=== PATIENT | male | born 1950 | race Two or more races ===

== ENCOUNTER 2018-01-31 18:14 | Emergency (ER) | payer MEDICARE, OTHER ==
[~2018-01-31] VITALS: Ht 180.3 cm; Wt 108.9 kg
[~2018-01-31 18:14] MED LIST: NORCO 10MG-325MG1 EA PO
[2018-01-31] MEDS ORDERED: LIDOCAINE 5% PATCH TP NR (19:30)
[2018-01-31 20:30] LABS: CLARITY,URINE CLEAR (CLEAR); COLOR,URINE YELLOW (YELLOW); LEUKOCYTE ESTERASE ,URINE NEGATIVE (NEGATIVE)
[2018-01-31 20:31] LABS: BILIRUBIN,URINE NEGATIVE (NEGATIVE); KETONES,URINE NEGATIVE (NEGATIVE); NITRITE,URINE NEGATIVE (NEGATIVE); PROTEIN,URINE DIPSTICK NEGATIVE (NEGATIVE); URINE UROBILINOGEN 0.2 mg/dL (0.2 - 1)
--- NOTE | 2018-01-31 20:33 | Diagnostic Imaging Report ---
History: Severe back pain, history of discectomy. Comparison studies: Report of MRI lumbar spine from 06/05/2011, images are not available for comparison at the time of interpretation. Technique: Axial images were obtained through the lumbar spine from L1-S1. Coronal and sagittal images reconstructed from the axial data. Dose modulation, iterative reconstruction, and/or weight based adjustment of the mA/kV was utilized to reduce the radiation dose to as low as reasonably achievable. Intravenous contrast: None Findings: The usual 5 non-rib bearing lumbar vertebral bodies are present. Alignment: Loss of normal lumbar lordosis may be positional or due to muscle spasm. Mild dextrocurvature of the lumbar spine centered at L2-L3. Soft tissues: No abnormalities. Paraspinal muscles: Fatty atrophy of left posterior paraspinal muscle at S1. Sacroiliac joints: Moderate right and mild left degenerative changes in the sacroiliac joint, with decreased joint space, subchondral sclerosis and osteophyte formation. Vertebrae: Nonspecific 1.1 cm lytic lesion in the posterior aspect of L5 vertebral body. Degenerative changes: L1-L2: Mild degenerative disc disease with endplate sclerosis, anterior vertebral osteophyte and minimal vacuum phenomena. Disc bulge without significant canal stenosis. Mild bilateral facet arthrosis. Mild right foraminal stenosis. L2-L3: Mild to moderate degenerative disc disease with decreased intervertebral disc space, endplate sclerosis, anterior vertebral osteophyte and vacuum phenomena. Disc bulge asymmetric to right and facet arthrosis effaces thecal sac without significant canal stenosis. Moderate right and mild left foraminal stenosis. L3-L4: Mild degenerative disc disease with endplate sclerosis, anterior vertebral osteophyte and vacuum phenomena. Disc bulge and bilateral facet arthrosis without significant canal stenosis. Moderate right and severe left foraminal stenosis. L4-L5: Status post left laminotomy. Mild degenerative disc disease with endplate sclerosis and trace vacuum phenomena. Disc bulge and facet arthrosis without significant canal stenosis. Mild right and moderate left facet arthrosis. Bilateral severe (left worse than right) foraminal stenosis with possible impingement of left L4 nerve root. L5-S1: Disc bulge without canal stenosis. Moderate right and mild left facet arthrosis. No foraminal stenosis. IMPRESSION: 1. Multilevel lumbar spondylosis, status post left laminotomy at L4-L5. 2. No significant canal stenosis. 3. Multilevel foraminal stenosis, particularly mild right at L1-L2, moderate right and mild left at L2-L3, moderate right and severe left at L3-L4 and bilateral severe at L4-L5 with possible impingement of left L4 nerve root. 4. Multilevel degenerative disc disease and facet arthrosis as detailed above. 5. Suboptimal evaluation as comparison is done only with report of prior MRI lumbar spine from 06/05/2011, however based on the prior report there is interval progression of the lumbar spondylosis. Consider follow-up with MRI of the lumbar spine with and without contrast. Signed by: Dr. Bailey Day M.D. on 01/31/2018 8:30 PM
[2018-01-31 20:42] LABS: RBC,URINE 0-5 /HPF (0-5); WBC,URINE (MAN) 0-5 /HPF (0-5)
[2018-01-31] MEDS ORDERED: ULTRAM50 MG PO (21:31)
== END 2018-01-31 21:52 | disposition home or self-care (01) ==
LOC: ER 18:14
DX: M54.5 Low back pain (principal); M51.37 Other intervertebral disc degeneration, lumbosacral region
CPT/HCPCS: 72131; 81001; 99284

== ENCOUNTER 2018-06-20 17:21 | Emergency (ER) | payer OTHER ==
[~2018-06-20] VITALS: Ht 180.3 cm; Wt 108.9 kg
[~2018-06-20 17:21] MED LIST changes: +ULTRAM50 MG PO
--- OUTSIDE RECORDS SUMMARY | 2018-06-20 17:24 | XMS REPORT ---
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 Allergies, Adverse Reactions, Alerts This patient has no known allergies or adverse reactions. Medications This patient has no known medications. Results Test Description Test Time Test Comments Text Results Atomic Results Result Comments CT LUMBAR SPINE WO 2018-01-31 20:11:00 [place] [id number] [place] [id number] Patient Name: TRACEY DERAS MR #: [id number] : 1950 Age/Sex: 67/M Req #: [id number] [facility] Physician: Ordered by: JYOTI ANGLIN MD Report #: [id number] Location: ER Room/Bed: Procedure: [id number] CT/CT LUMBAR SPINE WO Exam Date: 01/31/18 Exam Time: 1958 REPORT STATUS: Signed History: Severe back pain, history of discectomy. Comparison studies: Report of MRI lumbar spine from 06/05/2011, images are not available for comparison at the time of interpretation. Technique: Axial images were obtained through the lumbar spine from L1-S1. Coronal and sagittal images reconstructed from the axial data. Dose modulation, iterative reconstruction, and/or weight based adjustment of the mA/kV was utilized to reduce the radiation dose to as low as reasonably achievable. Intravenous contrast: None Findings: The usual 5 non-rib bearing lumbar vertebral bodies are present. Alignment: Loss of normal lumbar lordosis may be positional or due to muscle spasm. Mild dextrocurvature of the lumbar spine centered at L2-L3. Soft tissues: No abnormalities. Paraspinal muscles: Fatty atrophy of left posterior paraspinal muscle at S1. Sacroiliac joints: Moderate right and mild left degenerative changes in the sacroiliac joint, with decreased joint space, subchondral sclerosis and osteophyte formation. Vertebrae: Nonspecific 1.1 cm lytic lesion in the posterior aspect of L5 vertebral body. Degenerative changes: L1-L2: Mild degenerative disc disease with endplate sclerosis, anterior vertebral osteophyte and minimal vacuum phenomena. Disc bulge without significant canal stenosis. Mild bilateral facet arthrosis. Mild right foraminal stenosis. L2-L3: Mild to moderate degenerative disc disease with decreased intervertebral disc space, endplate sclerosis, anterior vertebral osteophyte and vacuum phenomena. Disc bulge asymmetric to right and facet arthrosis effaces thecal sac without significant canal stenosis. Moderate right and mild left foraminal stenosis. L3-L4: Mild degenerative disc disease with endplate sclerosis, anterior vertebral osteophyte and vacuum phenomena. Disc bulge and bilateral facet arthrosis without significant canal stenosis. Moderate right and severe left foraminal stenosis. L4-L5: Status post left laminotomy. Mild degenerative disc disease with endplate sclerosis and trace vacuum phenomena. Disc bulge and facet arthrosis without significant canal stenosis. Mild right and moderate left facet arthrosis. Bilateral severe (left worse than right) foraminal stenosis with possible impingement of left L4 nerve root. L5- S1: Disc bulge without canal stenosis. Moderate right and mild left facet arthrosis. No foraminal stenosis. IMPRESSION: 1. Multilevel lumbar spondylosis, status post left laminotomy at L4-L5. 2. No significant canal stenosis. 3. Multilevel foraminal stenosis, particularly mild right at L1-L2, moderate right and mild left at L2-L3, moderate right and severe left at L3-L4 and bilateral severe at L4-L5 with possible impingement of left L4 nerve root. 4. Multilevel degenerative disc disease and facet arthrosis as detailed above. 5. Suboptimal evaluation as comparison is done only with report of prior MRI lumbar spine from 06/05/2011, however based on the prior report there is interval progression of the lumbar spondylosis. Consider follow-up with MRI of the lumbar spine with and without contrast. Signed by: Dr. Bailey Day M.D. on 01/31/2018 8:30 PM Dictated By: BAILEY DAY MD 29 Transcribed By: BEE on 01/31/182029 COPY TO: JYOTI ANGLIN MD
== END 2018-06-20 20:23 | disposition home or self-care (01) ==
LOC: ER 17:21
DX: J31.2 Chronic pharyngitis (principal); M54.9 Dorsalgia, unspecified; G89.29 Other chronic pain
CPT/HCPCS: 99282

== ENCOUNTER 2021-08-24 07:45 | Emergency (ER) | payer MEDICARE ==
[~2021-08-24] VITALS: Ht 180.3 cm; Wt 112.5 kg
[2021-08-24] MEDS ORDERED: SODIUM CHLORIDE 0.9% 1000ML 1,000 ML IV STA (08:13)
[2021-08-24] MEDS ORDERED: KETOROLAC TROMETHAMINE 30 MG/ML VIAL IV STA (08:13)
[2021-08-24] MEDS ORDERED: HYDROCODONE/APAP 7.5MG-325MG 1 EA TAB PO ONE (08:30)
[2021-08-24 08:34] LABS: BASOPHILS % 0.4 % (0.0-1.0); EOSINOPHILS # (AUTO) 0.1 (0.0-0.4); EOSINOPHILS % 0.7 % (0.0-6.0); HEMATOCRIT 43.5 % (38.2-49.6); HEMOGLOBIN 15.1 g/dL (14.0-18.0); LYMPHOCYTES % 26.8 % (18.0-39.1); MEAN CORPUSCULAR HEMOGLOBIN 29.4 pg (28-32); MEAN CORPUSCULAR HGB CONC 34.7 g/dL (31-35); MEAN CORPUSCULAR VOLUME 84.8 fL (81-99); MONOCYTES # (AUTO) 0.6 (0.2-0.8); MONOCYTES % 7.6 % (4.4-11.3); NEUTROPHILS # (AUTO) 4.7 (2.1-6.9); NEUTROPHILS % 64.1 % (38.7-80.0); PLATELET COUNT 220 x10e3/uL (140-360); RED BLOOD COUNT 5.13 x10e6/uL (4.3-5.7); RED CELL DISTRIBUTION WIDTH 12.4 % (11.7-14.4)
[2021-08-24 08:53] LABS: ALANINE AMINOTRANSFERASE 16 IU/L (0-55); ALKALINE PHOSPHATASE 90 IU/L (40-150); ANION GAP 12.7 mmol/L (8-16); BLOOD UREA NITROGEN 17 mg/dL (7-26); BUN/CREATININE RATIO 15 (6-25); CALCIUM 9.3 mg/dL (8.4-10.2); CARBON DIOXIDE 24 mmol/L (22-29); CHLORIDE 107 mmol/L (98-107); CREATINE KINASE 75 IU/L (30-200); CREATININE, SERUM 1.13 mg/dL (0.72-1.25); EST GLOMERULAR FILTRATION RATE 64 ML/MIN (60-); GLUCOSE 163 mg/dL (74-118); POTASSIUM 3.7 mmol/L (3.5-5.1); SODIUM 140 mmol/L (136-145)
[2021-08-24 08:53] LABS: CLARITY,URINE SL CLOUDY (CLEAR); COLOR,URINE YELLOW (YELLOW); LEUKOCYTE ESTERASE ,URINE NEGATIVE (NEGATIVE); NITRITE,URINE NEGATIVE (NEGATIVE); PROTEIN,URINE DIPSTICK NEGATIVE (NEGATIVE)
[2021-08-24 08:54] LABS: BACTERIA,URINE FEW /HPF; KETONES,URINE NEGATIVE (NEGATIVE); RBC,URINE 0-5 /HPF (0-5); URINE UROBILINOGEN 0.2 mg/dL (0.2 - 1); WBC,URINE (MAN) 0-5 /HPF (0-5)
[2021-08-24 08:55] LABS: EPITHELIAL CELLS,URINE FEW /LPF; MUCUS,URINE MODERATE (RARE)
[2021-08-24] MEDS ORDERED: HYDROCODON-ACE1 EAC9 PO (10:54)
[2021-08-24] MEDS ORDERED: PROTONIX40 MG PO (10:54)
[2021-08-24 11:07] VITALS: BP 109/78
== END 2021-08-24 11:05 | disposition home or self-care (01) ==
LOC: ER 08:05
DX: M54.50 Low back pain, unspecified (principal); G89.29 Other chronic pain; I10 Essential (primary) hypertension; E03.9 Hypothyroidism, unspecified
CPT/HCPCS: 36415; 71045; 74176; 80053; 81001; 82550; 82553; 84484; 85025; 93005; 99284; J1885; J7030

== ENCOUNTER 2021-12-19 07:46 | Emergency (ER) | payer MEDICARE, OTHER ==
[~2021-12-19] VITALS: Ht 180.3 cm; Wt 112.5 kg
[~2021-12-19 07:46] MED LIST changes: +HYDROCODON-ACE1 EAC9 PO; +PROTONIX40 MG PO
[2021-12-19 09:25] LABS: BASOPHILS % 0.3 % (0.0-1.0); EOSINOPHILS # (AUTO) 0.1 (0.0-0.4); EOSINOPHILS % 1.4 % (0.0-6.0); HEMATOCRIT 43.5 % (38.2-49.6); HEMOGLOBIN 14.7 g/dL (14.0-18.0); LYMPHOCYTES # (AUTO) 2.8 (1.0-3.2); LYMPHOCYTES % 41.8 % (18.0-39.1); MEAN CORPUSCULAR HEMOGLOBIN 29.3 pg (28-32); MEAN CORPUSCULAR HGB CONC 33.8 g/dL (31-35); MEAN CORPUSCULAR VOLUME 86.8 fL (81-99); MONOCYTES # (AUTO) 0.5 (0.2-0.8); MONOCYTES % 7.7 % (4.4-11.3); NEUTROPHILS # (AUTO) 3.2 (2.1-6.9); NEUTROPHILS % 48.5 % (38.7-80.0); PLATELET COUNT 184 x10e3/uL (140-360); RED BLOOD COUNT 5.01 x10e6/uL (4.3-5.7); RED CELL DISTRIBUTION WIDTH 12.4 % (11.7-14.4)
[2021-12-19 09:38] LABS: INR 0.91; PROTHROMBIN TIME 13.1 seconds (11.9-14.5)
[2021-12-19 09:39] LABS: PARTIAL THROMBOPLASTIN TIME 28.7 seconds (23.8-35.5)
[2021-12-19 09:51] LABS: ALBUMIN/GLOBULIN RATIO 0.9 (0.8-2.0); ANION GAP 13.2 mmol/L (8-16); CREATININE, SERUM 0.85 mg/dL (0.72-1.25); POTASSIUM 4.2 mmol/L (3.5-5.1)
[2021-12-19] MEDS ORDERED: IOPAMIDOL 370 MG/ML 100 ML INFUS..BTL INJ ONE (11:25)
[2021-12-19] MEDS ORDERED: HYDROCODONE/APAP 10MG-325MG TAB PO ONE (12:30)
== END 2021-12-19 13:55 | disposition home or self-care (01) ==
LOC: ER 08:00
DX: M54.50 Low back pain, unspecified (principal); S00.83XA Contusion of other part of head, initial encounter; M25.552 Pain in left hip; W20.8XXA Other cause of strike by thrown, projected or falling object, initial encounter; Y93.H2 Activity, gardening and landscaping; Y92.89 Other specified places as the place of occurrence of the external cause; I10 Essential (primary) hypertension; E03.9 Hypothyroidism, unspecified; M54.9 Dorsalgia, unspecified; G89.29 Other chronic pain
CPT/HCPCS: 36415; 70450; 71260; 72125; 74177; 80053; 85025; 85610; 85730; 99284; Q9967

== ENCOUNTER 2022-03-31 11:28 | Emergency (ER) | payer MEDICARE, OTHER ==
[~2022-03-31] VITALS: Ht 180.3 cm; Wt 112.5 kg
[2022-03-31 13:30] LABS: CLARITY,URINE CLEAR (CLEAR); COLOR,URINE YELLOW (YELLOW)
[2022-03-31 13:31] LABS: BACTERIA,URINE RARE /HPF; KETONES,URINE NEGATIVE (NEGATIVE); LEUKOCYTE ESTERASE ,URINE NEGATIVE (NEGATIVE); MUCUS,URINE FEW (RARE); NITRITE,URINE NEGATIVE (NEGATIVE); PROTEIN,URINE DIPSTICK NEGATIVE (NEGATIVE); RBC,URINE 0-5 /HPF (0-5); URINE UROBILINOGEN 1 mg/dL (0.2 - 1); WBC,URINE (MAN) 0-5 /HPF (0-5)
[2022-03-31] MEDS ORDERED: METHOCARBAMOL750 MG PO (13:35)
[2022-03-31 13:49] VITALS: BP 106/63
== END 2022-03-31 13:43 | disposition home or self-care (01) ==
LOC: ER 11:47
DX: M62.830 Muscle spasm of back (principal); X50.0XXA Overexertion from strenuous movement or load, initial encounter; Y92.89 Other specified places as the place of occurrence of the external cause; I10 Essential (primary) hypertension; E03.9 Hypothyroidism, unspecified; M54.9 Dorsalgia, unspecified; G89.29 Other chronic pain
CPT/HCPCS: 74176; 81001; 99284

== ENCOUNTER 2023-04-03 08:34 | Emergency (ER) | payer MEDICARE ==
[~2023-04-03] VITALS: Ht 180.3 cm; Wt 112.5 kg
[~2023-04-03 08:34] MED LIST changes: +METHOCARBAMOL750 MG PO
[2023-04-03 08:39] VITALS: O2SAT 98
[2023-04-03] MEDS ORDERED: ONDANSETRON HCL INJ 2MG/ML 2ML 2 MG/ML VIAL IV STA (08:49)
[2023-04-03] MEDS ORDERED: KETOROLAC TROMETHAMINE 30 MG/ML VIAL IV STA (08:49)
[2023-04-03] MEDS ORDERED: SODIUM CHLORIDE 0.9% 1000ML 1,000 ML IV STA (08:49)
[2023-04-03] MEDS ORDERED: HYDROCODONE/APAP 10MG-325MG TAB PO ONE (09:00)
[2023-04-03 09:04] LABS: BASOPHILS % 0.6 % (0.0-1.0); EOSINOPHILS # (AUTO) 0.1 (0.0-0.4); EOSINOPHILS % 0.9 % (0.0-6.0); HEMATOCRIT 41.1 % (38.2-49.6); HEMOGLOBIN 14.2 g/dL (14.0-18.0); LYMPHOCYTES # (AUTO) 3.6 (1.0-3.2); LYMPHOCYTES % 51.7 % (18.0-39.1); MEAN CORPUSCULAR HEMOGLOBIN 29.4 pg (28-32); MEAN CORPUSCULAR HGB CONC 34.5 g/dL (31-35); MEAN CORPUSCULAR VOLUME 85.1 fL (81-99); MONOCYTES # (AUTO) 0.5 (0.2-0.8); MONOCYTES % 7.7 % (4.4-11.3); NEUTROPHILS # (AUTO) 2.7 (2.1-6.9); NEUTROPHILS % 38.8 % (38.7-80.0); PLATELET COUNT 172 x10e3/uL (140-360); RED BLOOD COUNT 4.83 x10e6/uL (4.3-5.7); RED CELL DISTRIBUTION WIDTH 12.7 % (11.7-14.4); WHITE BLOOD COUNT 6.92 x10e3/uL (4.8-10.8)
[2023-04-03 09:15] LABS: INR 1.1; PROTHROMBIN TIME 14.4 seconds (11.9-14.5)
[2023-04-03 09:16] LABS: PARTIAL THROMBOPLASTIN TIME 30.7 seconds (23.8-35.5)
[2023-04-03 09:35] LABS: ALANINE AMINOTRANSFERASE 15 IU/L (0-55); ALBUMIN/GLOBULIN RATIO 1.1 (0.8-2.0); ALKALINE PHOSPHATASE 78 IU/L (40-150); ANION GAP 12.8 mmol/L (8-16); BLOOD UREA NITROGEN 16 mg/dL (7-26); BUN/CREATININE RATIO 18 (6-25); CALCIUM 8.9 mg/dL (8.4-10.2); CARBON DIOXIDE 23 mmol/L (22-29); CHLORIDE 109 mmol/L (98-107); CREATININE, SERUM 0.87 mg/dL (0.72-1.25); LIPASE 6 U/L (8-78); POTASSIUM 3.8 mmol/L (3.5-5.1); SODIUM 141 mmol/L (136-145)
[2023-04-03 09:45] LABS: CLARITY,URINE CLEAR (CLEAR); COLOR,URINE YELLOW (YELLOW); LEUKOCYTE ESTERASE ,URINE NEGATIVE (NEGATIVE)
[2023-04-03 09:46] LABS: BACTERIA,URINE FEW /HPF; EPITHELIAL CELLS,URINE FEW /LPF; KETONES,URINE NEGATIVE (NEGATIVE); NITRITE,URINE NEGATIVE (NEGATIVE); PROTEIN,URINE DIPSTICK NEGATIVE (NEGATIVE); URINE UROBILINOGEN 0.2 mg/dL (0.2 - 1); WBC,URINE (MAN) 0-5 /HPF (0-5)
[2023-04-03] MEDS ORDERED: IOPAMIDOL 370 MG/ML 100 ML INFUS..BTL INJ ONE (09:52)
[2023-04-03] MEDS ORDERED: DICYCLOMINE HCL20 MG PO (10:43)
== END 2023-04-03 11:28 | disposition home or self-care (01) ==
LOC: ER 08:39
DX: R10.32 Left lower quadrant pain (principal); K57.30 Diverticulosis of large intestine without perforation or abscess without bleeding; M25.552 Pain in left hip; I10 Essential (primary) hypertension; E03.9 Hypothyroidism, unspecified; M54.9 Dorsalgia, unspecified; G89.29 Other chronic pain
CPT/HCPCS: 36415; 71045; 74177; 80053; 81001; 83690; 83735; 84484; 85025; 85610; 85730; 87086; 93005; 99284; C9113; J1885; J2405; J7030; Q9967

== ENCOUNTER 2024-10-05 06:47 | Emergency (ER) | payer MEDICARE ==
[~2024-10-05] VITALS: Ht 180.3 cm; Wt 108.4 kg
[~2024-10-05 06:47] MED LIST changes: +DICYCLOMINE HCL20 MG PO; +PAXLOVID 300-11 EAC1 PO
[2024-10-05 07:06] VITALS: PULSE 74; RESP 16; TEMP 98.2; O2SAT 97
[2024-10-05 08:19] LABS: BILIRUBIN,URINE NEGATIVE (NEGATIVE); CLARITY,URINE CLEAR (CLEAR); COLOR,URINE YELLOW (YELLOW); GLUCOSE, URINE NEGATIVE (NEGATIVE); KETONES,URINE NEGATIVE (NEGATIVE); LEUKOCYTE ESTERASE ,URINE NEGATIVE (NEGATIVE); NITRITE,URINE NEGATIVE (NEGATIVE); PH,URINE 5.5 (5 - 7); PROTEIN,URINE DIPSTICK NEGATIVE (NEGATIVE); URINE UROBILINOGEN 0.2 mg/dL (0.2 - 1)
[2024-10-05 08:36] LABS: RBC,URINE 0-5 /HPF (0-5); WBC,URINE (MAN) 0-5 /HPF (0-5)
[2024-10-05 08:37] LABS: BACTERIA,URINE FEW /HPF; EPITHELIAL CELLS,URINE RARE /LPF
== END 2024-10-05 09:10 | disposition home or self-care (01) ==
LOC: ER 06:50
DX: R10.30 Lower abdominal pain, unspecified (principal); N40.0 Benign prostatic hyperplasia without lower urinary tract symptoms; I10 Essential (primary) hypertension; E03.9 Hypothyroidism, unspecified; M54.9 Dorsalgia, unspecified; G89.29 Other chronic pain
CPT/HCPCS: 81001; 87086; 99283

== ENCOUNTER 2025-02-17 19:55 | Emergency (ER) | payer MEDICARE ==
[~2025-02-17] VITALS: Ht 180.3 cm; Wt 105.2 kg
[~2025-02-17 19:55] MED LIST changes: +CEFDINIR300 MG PO
[2025-02-17 19:59] VITALS: TEMP 98.6
[2025-02-17] MEDS ORDERED: DILTIAZEM HCL 5 MG/ML 5 ML VIAL IV ONE (20:30)
[2025-02-17] MEDS ORDERED: METOPROLOL SUCCINATE 25 MG TAB XL PO ONE (20:30)
[2025-02-17 20:51] LABS: BASOPHILS % 0.3 % (0.0-1.0); EOSINOPHILS % 0.2 % (0.0-6.0); LYMPHOCYTES % 21.2 % (18.0-39.1); MONOCYTES % 8.6 % (4.4-11.3); NEUTROPHILS % 69.2 % (38.7-80.0); RED CELL DISTRIBUTION WIDTH 12.3 % (11.7-14.4)
[2025-02-17 21:15] LABS: EST GLOMERULAR FILTRATION RATE 53.0 ML/MIN (>=60)
[2025-02-17] MEDS ORDERED: LACTATED RINGER'S 1,000 ML ONE (22:04)
[2025-02-17] MEDS: LACTATED RINGER'S 1,000 ML INJ ONE (22:10)
[2025-02-17 22:14] VITALS: PULSE 90; RESP 17
[2025-02-17 22:50] VITALS: BP 110/74; PULSE 88; RESP 17; TEMP 97.8; O2SAT 98
== END 2025-02-17 23:06 | disposition home or self-care (01) ==
LOC: ER 20:22
DX: R42 Dizziness and giddiness (principal); I48.91 Unspecified atrial fibrillation; I10 Essential (primary) hypertension; E03.9 Hypothyroidism, unspecified; M54.9 Dorsalgia, unspecified; G89.29 Other chronic pain; R94.31 Abnormal electrocardiogram [ECG] [EKG]
CPT/HCPCS: 36415; 70450; 71045; 80053; 83880; 84484; 85025; 93005; 99284